=== PATIENT | female | born 1965 | race African-American/Black ===

== ENCOUNTER 2021-07-26 23:54 | Inpatient (IN) ==
[2021-07-27 01:03] LABS: Basophils # 0.1 10*3/uL (0.0-0.2); Basophils % 0.6 % (0.0-0.8); Eosinophils # 0.4 10*3/uL (0.0-0.87); Eosinophils % 3.9 % (0.00-10.9); Hematocrit 32.5 VOL% (35.7-47.0); Hemoglobin 10.3 GM/DL (12.0-16.0); Immature Granulocytes % 0.9 %; Immature Granulocytes Absolute 0.08 #; Lymphocytes # 1.3 10*3/uL (1.4-4.0); Lymphocytes % 14.4 % (21.3-54.2); Mean Corpuscular HGB Conc 31.7 GM/DL (32-36); Mean Corpuscular Volume 88.3 FL (87-102); Mean Platelet Volume 9.8 FL (9.6-12.0); Monocytes % 9.9 % (1.7-12.7); Neutrophils % 70.3 % (38.7-73.9); Platelet Count 143 T/CUMM (130-400); Red Blood Count 3.68 MC/CUMM (3.8-5.5); Red Cell Distribution Width 19.3 % (9.3-17.3); White Blood Count 9.1 T/CUMM (4-12)
[2021-07-27 01:08] LABS: Albumin 3.1 G/DL (3.4-5.0); Bilirubin,Total 0.7 MG/DL (0.20-1.00); Calcium 9.2 MG/DL (8.5-10.1); Potassium 3.5 MMOL/L (3.5-5.1); Total Protein 8.5 G/DL (6.4-8.2)
[2021-07-27] MEDS ORDERED: ENOXAPARIN 100 MG/ML SYRINGE SUBCUT STA (01:35)
[2021-07-27] MEDS ORDERED: ASPIRIN 325 MG TABLET PO STA (01:35)
[2021-07-27] MEDS ORDERED: ONDANSETRON 4 MG/2 ML VIAL IV STA (01:35)
[2021-07-27] MEDS ORDERED: LABETALOL 20 MG/4 ML SYRINGE IV STA (02:11)
[2021-07-27] MEDS ORDERED: ACETAMINOPHEN 325 MG TABLET PO PRN (03:08)
[2021-07-27] MEDS ORDERED: DEXTROSE 50% 25 GM/50 ML VIAL IV PRN (03:08)
[2021-07-27] MEDS ORDERED: GLUCAGON 1 MG VIAL IM PRN (03:08)
[2021-07-27] MEDS ORDERED: LABETALOL 20 MG/4 ML SYRINGE IV PRN (03:32)
[2021-07-27] MEDS ORDERED: hydrALAZINE 20 MG/1 ML VIAL IV PRN (03:39)
[2021-07-27 04:04] LABS: Risk Ratio 4.68; VLDL Cholesterol 64.6 MG/DL
[2021-07-27] MEDS ORDERED: lisinopriL 10 MG TABLET PO STA (06:36)
[2021-07-27] MEDS: ATORVASTATIN 40 MG TABLET PO SCH ×2 (09:06→12:22)
[2021-07-27] MEDS: METOPROLOL TARTRATE 25 MG TABLET PO SCH ×3 (09:06→20:14)
[2021-07-27] MEDS: amLODIPine 10 MG TABLET PO SCH ×2 (09:06→12:21)
[2021-07-27] MEDS: PANTOPRAZOLE 40 MG TABLET PO SCH ×2 (09:07→12:22)
[2021-07-27] MEDS ORDERED: REGADENOSON 0.4 MG/5 ML SYRINGE IV ONE (09:56)
[2021-07-27] MEDS: ENOXAPARIN 80 MG/0.8 ML SYRINGE SUBCUT SCH (13:59)
[2021-07-27] MEDS: MORPHINE 2 MG/1 ML SYRINGE IV PRN (23:53)
[2021-07-28] MEDS: ENOXAPARIN 80 MG/0.8 ML SYRINGE SUBCUT SCH ×2 (02:01→13:13)
[2021-07-28] MEDS: MORPHINE 2 MG/1 ML SYRINGE IV PRN (04:50)
[2021-07-28 05:47] LABS: Basophils # 0.1 10*3/uL (0.0-0.2); Basophils % 0.7 % (0.0-0.8); Eosinophils # 0.7 10*3/uL (0.0-0.87); Eosinophils % 7.6 % (0.00-10.9); Hematocrit 30.8 VOL% (35.7-47.0); Hemoglobin 9.8 GM/DL (12.0-16.0); Immature Granulocytes % 1.6 %; Immature Granulocytes Absolute 0.14 #; Lymphocytes # 1.5 10*3/uL (1.4-4.0); Lymphocytes % 16.5 % (21.3-54.2); Mean Corpuscular HGB Conc 31.8 GM/DL (32-36); Mean Corpuscular Volume 87.3 FL (87-102); Mean Platelet Volume 10.3 FL (9.6-12.0); Monocytes % 9.8 % (1.7-12.7); NRBC # 0.03 10*3/uL; Neutrophils % 63.8 % (38.7-73.9); Platelet Count 128 T/CUMM (130-400); Red Blood Count 3.53 MC/CUMM (3.8-5.5); Red Cell Distribution Width 19.3 % (9.3-17.3); White Blood Count 8.8 T/CUMM (4-12)
[2021-07-28 06:18] LABS: Calcium 9.2 MG/DL (8.5-10.1); Osmolality,Calculated 269.1 MOS/KG (273-304); Potassium 3.2 MMOL/L (3.5-5.1)
[2021-07-28] MEDS ORDERED: POTASSIUM CHLORIDE 20 MEQ TABLET PO ONE (07:26)
[2021-07-28] MEDS ORDERED: ASPIRIN EC 325 MG TABLET PO SCH (09:00)
[2021-07-28] MEDS ORDERED: lisinopriL 20 MG TABLET PO SCH (09:00)
[2021-07-28] MEDS: PANTOPRAZOLE 40 MG TABLET PO SCH (09:04)
[2021-07-28] MEDS: ATORVASTATIN 40 MG TABLET PO SCH (09:05)
[2021-07-28] MEDS: amLODIPine 10 MG TABLET PO SCH (09:05)
[2021-07-28] MEDS: METOPROLOL TARTRATE 25 MG TABLET PO SCH (09:43)
[2021-07-28 12:17] VITALS: BP 148/67
== END 2021-07-28 13:24 | disposition home health service (06) | DRG 190 ==
LOC: N.ED 23:54 → SUATTDRO 07-27 03:08 → N.EDINP 07-27 03:08 → N.TELEN 07-27 07:58
PROVIDERS: ADMIT Internal Medicine; ATTEND Internal Medicine